=== PATIENT | female | born 1985 | race Caucasian/White ===

== ENCOUNTER 2023-06-14 16:47 | Emergency (ER) | payer MEDICAID ==
[~2023-06-14] VITALS: Ht 162.6 cm; Wt 61.4 kg
[~2023-06-14 16:47] MED LIST: CYCL-1 PO
[2023-06-14 16:49] VITALS: BP 165/137; PULSE 124; RESP 24; TEMP 98; O2SAT 96
[2023-06-14] MEDS ORDERED: ACET1TAB96 PO (17:06)
[2023-06-14] MEDS ORDERED: AMOX-117 PO (17:06)
[2023-06-14] MEDS ORDERED: CIPR2.5D21 RIGHT EAR (17:06)
== END 2023-06-14 17:33 | disposition home or self-care (01) ==
LOC: ER 16:47
DX: H65.91 Unspecified nonsuppurative otitis media, right ear (principal); H65.02 Acute serous otitis media, left ear; H72.91 Unspecified perforation of tympanic membrane, right ear; Z88.5 Allergy status to narcotic agent; Z79.899 Other long term (current) drug therapy
CPT/HCPCS: 99283